=== PATIENT | female | born 1990 | race Caucasian/White ===

== ENCOUNTER 2018-02-13 22:50 | Emergency (ER) | payer SELFPAY ==
[~2018-02-13] VITALS: Ht 152.4 cm; Wt 86.6 kg
[2018-02-13 23:08] VITALS: Ht 152.4 cm; Wt 86.6 kg
[2018-02-13 23:52] LABS: PLATELET COUNT 250 x10^3mcL (130-400)
[2018-02-13 23:54] LABS: BASOPHIL % 0 % (0-2)
[2018-02-14 00:04] LABS: CALCIUM 9.6 mg/dL (8.5-10.1); CARBON DIOXIDE 25.5 mmol/L (21-32); CHLORIDE SERUM 104 mmol/L (98-107); CREATININE SERUM 0.8 mg/dL (0.6-1.0); GFR1 > 60 mL/min; GLUCOSE SERUM 109 mg/dL (74-106); POTASSIUM SERUM 4.1 mmol/L (3.5-5.1); SODIUM SERUM 138 mmol/L (136-145)
[2018-02-14 01:15] VITALS: BP 110/67
== END 2018-02-14 01:15 | disposition home or self-care (01) ==
LOC: ED 22:50
PROVIDERS: Emergency Medicine
DX: S20.219A Contusion of unspecified front wall of thorax, initial encounter (principal); S06.9X9A Unspecified intracranial injury with loss of consciousness of unspecified duration, initial encounter; V89.2XXA Person injured in unspecified motor-vehicle accident, traffic, initial encounter; W22.10XA Striking against or struck by unspecified automobile airbag, initial encounter; Y93.I9 Activity, other involving external motion; Y92.89 Other specified places as the place of occurrence of the external cause; Y99.8 Other external cause status
CPT/HCPCS: 36415; J7030; Q9967